=== PATIENT | female | born 1955 | race Caucasian/White ===

== ENCOUNTER 2022-10-12 16:09 | Emergency (ER) | payer MEDICARE, SELFPAY ==
--- NOTE | ~2022-10-12 | XR_ITS ---
EXAMINATION: XR HAND, RIGHT CLINICAL INFORMATION: Injury, pain COMPARISON: None TECHNIQUE: PA, lateral, and oblique views of the right hand. FINDINGS: No acute fracture or dislocation. Joint spaces at the wrist appear maintained. Advanced first CMC joint osteoarthritis with severe joint space narrowing, subchondral sclerosis and osteophytes. Advanced osteoarthritic change at the IP joints characterized by varying degrees of joint space narrowing or subchondral sclerosis and osteophytes, most severe at the thumb IP joint, second and third DIP joints. No erosions or chondrocalcinosis. XR/XR hand RT 2V IMPRESSION: 1. No acute fracture or dislocation. 2. Advanced osteoarthritic change at the IP joints and first CMC joint.
--- NOTE | 2022-10-12 16:11 | ED_ITS ---
HPI - General Adult General Chief complaint: Animal Bite Stated complaint: Dog bite R hand per EMS Time Seen by Provider: 10/12/22 16:10 Source: patient and EMS Mode of arrival: EMS Limitations: no limitations History of Present Illness HPI narrative: Patient is a 67 year old assigned female at with no reported medical history presenting to the emergency department today with a right hand laceration. Patient states that she was bit by her newly adopted dog. Patient states that she is unsure when her last tetanus shot was. Patient states that the dog is up to date on all shots. Patient denies any dizziness, lightheadedness, abdominal pain, nausea, vomiting, fever, chills, blurry vision, double vision, loss of vision, chest pain, difficulty breathing, shortness of breath, back pain, night sweats, pain with urination, increased urinary frequency, increased urinary urgency, blood in her urine or stool, syncope or a near syncopal episode, bowel incontinence, bladder incontinence, bowel retention, bladder retention, or any other complaints at this time. Onset (ago): minute(s) Location: right and upper extremity Radiation: non-radiation Severity: mild Severity scale (1-10): 3 Pain Consistency: constant Relieving factors: none Exacerbating factors: none Associated symptoms: denies other symptoms Treatments prior to arrival: none Related Data Previous Rx's Medication Instructions Recorded amoxicillin 875 mg-potassium 1 tab PO BID 7 days #14 tabs 10/12/22 clavulanate 125 mg tablet Allergies Allergy/AdvReac Type Severity Reaction Status Date / Time No Known Allergies Allergy Verified 10/12/22 16:17 Review of Systems Constitutional: Constitutional: Reports no additional constitutional complaints, Denies chills, Denies fever(s) and Denies night sweats Eyes: Eyes: Reports no additional eye complaints, Denies blurry vision, Denies change in vision, Denies diplopia, Denies eye discharge, Denies loss of vision and Denies eye pain ENT: Denies dizziness Cardiovascular: Cardiovascular: Reports no additional cardiovascular complaints, Denies chest pain, Denies lightheadedness, Denies Loss of Consciousness and Denies dyspnea Respiratory: Respiratory: Reports no additional respiratory complaints and Denies dyspnea Gastrointestinal: Gastrointestinal: Reports no additional gastrointestinal complaints, Denies abdominal pain, Denies melena, Denies hematochezia, Denies change in bowel habits and Denies change in stool character Genitourinary: Genitourinary: Denies hematuria, Denies urinary frequency, Denies dysuria, Denies urinary incontinence, Denies urinary hesitancy and Denies urinary urgency Musculoskeletal: Musculoskeletal: Reports no additional musculoskeletal complaints, Denies numbness and Denies tingling Comments: right hand laceration Neurologic: Denies dizziness, Denies loss of vision, Denies numbness and Denies tingling Psychiatric: Psychiatric: Reports no additional psychiatric complaints Endocrine: Endocrine: Reports no additional endocrine complaints Hematologic/Lymphatic: Hematologic/Lymphatic: Reports no additional hematologic/lymphatic complaints Allergic/Immunologic: Allergic/Immunologic: Reports no additional allergic/immunologic complaints PMFSH Past Medical History Attestation statement: The following information was validated with the patient. Source: old records reviewed and nursing notes reviewed Social History Social History Alcohol intake: current Alcohol intake frequency: holidays/special occasions only Alcohol type: wine Smoked in Last 30 Days: No Use of substances other than those prescribed or required for medical reasons: No Advance Directives: No Advance Directives Information Provided: No Physical Exam ED Vital Signs: Vital Signs - 24 hr 10/12/22 16:18 Temperature 97.8 F Pulse Rate 90 Respiratory Rate 20 Blood Pressure 177/78 H Pulse Oximetry 96 Oxygen Delivery Method Room Air BMI result Body Mass Index 35.5 Const General: cooperative, no acute distress, alert and awake Nutritional Appearance: well nourished Orientation/consciousness: patient oriented x3 Limitations: no limitations [facility] Head: Yes normal to inspection and Yes atraumatic Ears: hearing grossly normal bilaterally and external ears normal General nose exam: Normal external nose present, no nasal discharge noted and no epistaxis Face and sinus: Yes normal facial exam, No abrasion and No laceration Mouth: Normal oral and palatal mucosa present, no drooling and no muffled voice Eyes General: appearance normal, both eyes and all related structures Periorbital: periorbital findings normal Eyelids: Yes eyelids normal Conjunctivae: conjunctivae normal Pupils: Equal, round and reactive pupils present EOM: EOMs intact bilaterally Neck Neck: Yes normal visual inspection, Yes full ROM and Yes no lymphadenopathy Chest Chest palpation & inspection: normal inspection of the chest Resp Effort & Inspection: normal respiratory effort and able to speak in complete sentences Auscultation: clear to auscultation bilaterally Cardio Rate: regular rate Rhythm: regular rhythm GI Inspection: Yes normal to inspection Neuro General: patient oriented x3 and moves all extremities Cranial nerves: Yes Equal, round and reactive pupils present Cognition (Neuro): normal cognition Motor exam (neuro): 5/5 motor strength present throughout Sensory Exam: Normal double simultaneous stimulation for sensation Coordination: [id number] test normal Extrem General: Yes full ROM and Yes capillary refill normal Hand/finger images: 1. 3cm laceration 2. 2cm laceration Psych Appearance: grossly normal Mental Status: mental status grossly normal Affect: normal affect Attitude: cooperative Thought process: Normal thought process present Thought content: Normal thought content present Insight: Good insight present (Psych) Medications Administered Discontinued Medications Generic Name Dose Route Start Last Admin Trade Name Freq PRN Reason Stop Dose Admin Hydrocodone Bitart/Acetaminophen 1 tab 10/12/22 16:36 10/12/22 16:44 Hydrocodone Bit/Acetam 5/325 Tablet PO 10/12/22 16:37 1 tab ONCE ONE Administration Diphtheria/Tetanus/Acell Pertussis 0.5 ml 10/12/22 17:37 10/12/22 17:45 Diphth,Pertus(Acell),Tet Adult 0.5 Ml Syringe IM 10/12/22 17:38 0.5 ml .ONCE ONE Administration Lidocaine HCl 15 ml 10/12/22 16:17 10/12/22 16:28 Lidocaine Hcl 1 % Mpf 5 Ml Vial SUBCUT 10/12/22 16:18 15 ml ONCE ONE Administration Procedures Laceration Laceration 1: Site: hand Side (If applicable): right Size (cm): 5 Description: irregular Depth: simple, single layer Local Anesthetic: lidocaine 1% Amount of anesthesia used (mL): 15 Pre-repair: wound explored, irrigated extensively and deep structures intact Skin layer closed with: other (prolene) Size (cm): 4-0 Number of sutures: 5 Technique: simple, interrupted (approximated loosely) Medical Decision Making Medical Decision Making MDM Narrative: Patient is a 67 year old assigned female at with no reported medical history presenting to the emergency department today with a laceration to the right hand. Patient's physical exam showed a 5cm laceration extending from the dorsal right ring finger into the web space between the ring and middle finger, no active bleeding. Patient's right hand x-ray showed no acute process. Patient's right hand was repaired, per procedure note, without incident. Patient's wound edges were loosely approximated after being thoroughly irrigated / cleaned. Patient's ROM, circulation, strength, and sensation were present before and after the laceration repair. Patient was brought up to date on tetanus. I explained my physical exam findings as well as all test results to the patient and the patient's son. I answered all questions asked by the patient and the patient's son. I stressed the importance of the patient taking her medication as prescribed. I stressed the importance of the patient following up with her primary care provider. I stressed the importance of the patient performing daily wound checks and dressing changes. I stressed the importance of the patient not soaking the sutured area. I stressed the importance of the patient having the sutures removed in 10-14 days and not spreading her fingers in a wide fashion until the sutures were removed. I stressed the importance of the patient returning to the emergency department immediately if her symptoms were to worsen or if she were to develop any dizziness, shortness of breath, difficulty breathing, chest pain, blurry vision, loss of vision, nausea, vomiting, abdominal pain, fever, chills, back pain, or any other complaints. P atient and the patient's son verbalized agreement and understanding with this treatment plan and discharge. Differential Diagnosis Differential Diagnoses: The differential diagnosis associated with the presentation includes dog bite, laceration Radiology Impression Discussion of test interpretation with radiology: I have reviewed the radiologist's reading. Radiologist Impression: My interpretation is in agreement with the radiologist's impression of this imaging study. -------- EXAMINATION: XR HAND, RIGHT CLINICAL INFORMATION: Injury, pain? COMPARISON: None? TECHNIQUE: PA, lateral, and oblique views of the right hand. FINDINGS: No acute fracture or dislocation. Joint spaces at the wrist appear maintained. Advanced first CMC joint osteoarthritis with severe joint space narrowing, subchondral sclerosis and osteophytes. Advanced osteoarthritic change at the IP joints characterized by varying degrees of joint space narrowing or subchondral sclerosis and osteophytes, most severe at the thumb IP joint, second and third DIP joints. No erosions or chondrocalcinosis. XR/XR hand RT 2V IMPRESSION: 1.? No acute fracture or dislocation. 2.? Advanced osteoarthritic change at the IP joints and first CMC joint. ? Dictated By: Mg Dunham Signed By: Electronically signed by Mg Dunham 10/12/22 0573 Discharge Plan Discharge Clinical Impression: Bite by animal, Hand laceration Patient Disposition: Home, Self-Care Instructions: Care For Your Stitches (ED), Laceration Without Closure (ED) Additional Instructions: Have your sutures removed in 10-14 days. Do NOT soak the sutured area. Do NOT stretch the fingers widely. DO perform daily wound checks and dressing changes. DO take your antibiotics for the full course. Follow up with your primary care provider. Return to the emergency department immediately if your symptoms worsen or if you develop any dizziness, shortness of breath, difficulty breathing, chest pain, blurry vision, loss of vision, nausea, vomiting, abdominal pain, fever, chills, back pain, or any other complaints. Prescriptions: New amoxicillin-pot clavulanate 875-125 mg tablet 1 tab PO BID 7 Days Qty: 14 0RF Referrals: [facility] [Provider Group] (Call to establish and follow up with a primary care provider.) [facility] [Provider Group] (Call to establish and follow up with a primary care provider.) [facility] [[facility]] (Call to establish and follow up with a primary care provider.) Print Language: Honduran
[2022-10-12 16:18] VITALS: BP 177/78; BP 220/100; PULSE 83; PULSE 90; RESP 20; TEMP 36.6; O2SAT 100; O2SAT 96; BMI 35.5
[2022-10-12] MEDS: Lidocaine HCl 1 % MPF 5 ML VIAL 15 ML SUBCUT (16:28)
--- NOTE | 2022-10-12 16:34 | PC.NURSE ---
patient a&ox3, c/o 10/10 pain, pt rt hand soaking in providone-iodine and saline, lidocaine obtained for provider to administer to the patient. vss, will continue to monitor
[2022-10-12] MEDS: HYDROcodone Bit/Acetam 5/325 TABLET 1 TAB PO (16:44)
--- NOTE | 2022-10-12 16:45 | PC.NURSE ---
patient medicated for pain, son at bedside
--- NOTE | 2022-10-12 16:53 | PC.NURSE ---
pt medicated for 10/10 pain, rt ring finger needing stitches, left ankle area superficial bites.
[2022-10-12] MEDS: Diphth,Pertus(ACell),Tet Adult 0.5 ML SYRINGE IM (17:45)
[2022-10-12] MEDS: Amoxicillin/Potassium Clav 875 MG TABLET PO (18:17)
== END 2022-10-12 18:28 | disposition home or self-care (01) ==
PROVIDERS: Emergency Provider Emergency Medicine
DX: S61.451A Open bite of right hand, initial encounter (principal); W54.0XXA Bitten by dog, initial encounter; Y93.89 Activity, other specified; Y92.019 Unspecified place in single-family (private) house as the place of occurrence of the external cause; Y99.9 Unspecified external cause status
CPT/HCPCS: 12042; 73120; 90471; 90715; 99284

== ENCOUNTER 2022-12-20 09:26 | Outpatient (REF) | payer MEDICARE, SELFPAY ==
--- NOTE | ~2022-12-20 | XR_ITS ---
EXAMINATION: XR SHOULDER, RIGHT CLINICAL INFORMATION: Pain in right shoulder. COMPARISON: None available. TECHNIQUE: AP external rotation, Grashey, scapular Y, and axillary views of the right shoulder. FINDINGS: There is mild loss of right AC joint space with inferior periarticular spurring. There is mild inferior acromial enthesophyte. The glenohumeral joint space is reduced but no bony erosive changes or spurring seen. No acute fracture or bony abnormality. The soft tissues are normal. XR/XR shoulder RT min 2V IMPRESSION: 1. Mild degenerative changes right AC joint and inferior acromial enthesophyte. 2. No visible acute fracture or dislocation seen.
[2022-12-20 11:17] LABS: MANUAL DIFF FLAG NO
[2022-12-20 11:28] LABS: Basophils Absolute Auto 0.1 X10*3/uL (0.0-0.2); Basophils Percent Auto 0.9 % (0-2); Eosinophils Absolute Auto 0.1 X10*3/uL (0.0-0.4); Hematocrit 46.4 % (37.0-47.0); Hemoglobin 15.3 g/dl (12.0-16.0); Imm Gran Abs Auto 0.04 X10*3/uL (0.00-0.03); Imm Gran Pct Auto 0.5 % (0.0-0.4); Lymphocytes Absolute Auto 1.7 X10*3/uL (1.2-4.9); Lymphocytes Percent Auto 21.3 % (20-40); Mean Corpuscular Hemoglobin 31.4 pg (27.0-33.0); Mean Corpuscular Volume 95.3 fL (80.0-98.0); Mean Platelet Volume 9.1 fL (9.4-12.3); Monocytes Absolute Auto 0.5 X10*3/uL (0.1-1.2); Monocytes Percent Auto 5.5 % (2-11); Neutrophils Absolute Auto 5.8 x10*3/uL (2.0-8.3); Neutrophils Percent Auto 70.8 % (45-73); Platelet Count 208 X10*3/uL (160-400); Red Blood Count 4.87 X10*6/uL (4.20-5.50); Red Cell Distribution Width 12.2 % (11.0-16.0); White Blood Count 8.2 X10*3/uL (4.8-10.8)
[2022-12-20 12:09] LABS: Alanine Aminotransferase 24 U/L (0-31); Albumin Level 4.1 g/dL (3.5-5.0); Alkaline Phosphatase 69 U/L (39-117); Anion Gap 12 (12-20); Aspartate Amino Transferase 20 U/L (5-31); Bilirubin Total 0.6 mg/dL (0.0-1.0); Blood Urea Nitrogen 15 mg/dL (9-16); Calcium 8.8 mg/dL (8.4-10.2); Carbon Dioxide 29 mmol/L (22-29); Chloride 105 mmol/L (96-108); Cholesterol 210 mg/dL; Estimated Glomerular Filt Rate > 60; Glucose Fasting 97 mg/dL (60-99); HDL Cholesterol 47 mg/dL; LDL Cholesterol Calculated 142 mg/dl; Potassium 4.3 mmol/L (3.3-5.1); Sodium 142 mmol/L (135-145); Total Protein 6.6 g/dL (6.5-8.0); Triglycerides 107 mg/dL
[2022-12-20 12:13] LABS: TSH reflex Free T4 1.77 uIU/mL (0.32-4.0); Vitamin B12 302 pg/mL (200-900)
[2022-12-26 15:03] LABS: Vitamin D 25-OH, D2 <4 ng/mL; Vitamin D 25-OH, D3 13 ng/mL; Vitamin D 25-OH, Total 13 ng/mL (30-100)
== END 2022-12-20 09:27 | disposition home or self-care (01) ==
LOC: HO.HMGCX 09:26
PROVIDERS: PCP Internal Medicine; Visit Provider Internal Medicine
DX: M25.511 Pain in right shoulder (principal); G47.9 Sleep disorder, unspecified; R53.83 Other fatigue; R68.89 Other general symptoms and signs; G89.29 Other chronic pain; Z76.89 Persons encountering health services in other specified circumstances; E66.9 Obesity, unspecified; E55.9 Vitamin D deficiency, unspecified
CPT/HCPCS: 36415; 73030; 80053; 80061; 82306; 82607; 84443; 85025

== ENCOUNTER 2023-07-23 13:33 | Outpatient (AMB) | payer MEDICARE, SELFPAY ==
[2023-07-23 13:40] VITALS: BP 136/78; PULSE 68; O2SAT 98; BMI 34.1
--- NOTE | 2023-07-23 13:40 | MHC.PC.OV ---
Vital Signs 07/23/23 13:40 Height 5 ft 6 in Weight 211 lb BMI 34.1 BP 136/78 Blood Pressure Location Rt brachial Position Sitting Pulse 68 Pulse Source Pulse Oximeter Pulse Oximetry (%) 98 Oxygen Delivery Method Room Air Intake Visit Reasons: 3 month follow up Med review Allergies No Known Allergies Allergy (Verified 07/23/23 13:42) Medication List - Last Reconciled 07/23/23 by Zuri Zafar MD cholecalciferol (vitamin D3) 25 mcg PO DAILY 90 days escitalopram oxalate (Lexapro) 5 mg PO DAILY Tobacco use date assessed: 07/23/23 Fall risk assessment: No Falls in past year Last assessed Fall Risk: 07/31/23 Dental Screening Dental Screen Date: 07/23/23 Did you have a dental visit in the last 12 months?: No Did you have a dental problem in the last 6 months where you did not have access to dental care?: No Was dental information given to patient?: Patient has dentist HPI 3 month follow up Med review HPI Details Patient is 67-year-old female came in today for follow-up appointment Patient has lost her recently she is going through grieving process Last time she was seen in January of this year I prescribed Lexapro 5 mg she felt so much better taking the medication until she ran out. She missed her follow-up appointment in April. I have sent a refill for the medication She does not want see a therapist She is taking vitamin-D supplement as well, continue that. BMI is elevated at 34.1 patient has difficulty losing weight. She will return in 4 months for follow-up [facility] Social History Housing: House Alcohol intake: current Alcohol intake frequency: holidays/special occasions only Alcohol type: wine Patient Tobacco Use Status: Never used Tobacco e-Cigarette/Vaping Use: Never Used Second Hand Smoke Exposure: No service: No Current occupational status: retired Cognitive needs: No Hearing needs: No Vision needs: Yes Questionnaire PHQ-9 Over the last 2 weeks, how often have you been bothered by any of the following problems? 1. Little interest or pleasure in doing things: several days 2. Feeling down, depressed, or hopeless: not at all 3. Trouble falling or staying asleep, or sleeping too much: more than half the days 4. Feeling tired or having little energy: more than half the days 5. Poor appetite or overeating: several days 6. Feeling bad about yourself - or that you are a failure or have let yourself or your family down: not at all 7. Trouble concentrating on things, such as reading the newspaper or watching television: not at all 8. Moving or speaking so slowly that other people could have noticed. Or the opposite - being so fidgety or restless that you have been moving around a lot more than usual: not at all 9. Thoughts that you would be better off or of hurting yourself in some way: not at all Total score: 6 Depression Screening Interpretation: Negative Depression Screening Done: Yes 22028 - PHQ-9 Billing: Yes Source: Developed by Drs. Srinivas Camargo, Aniya Hansen, Darío Magana and colleagues, with an educational surjit from [employer]. Thrive Questionnaire Date Thrive assessed: 01/31/23 AUDIT C Alcohol Use Questionnaire (AUDIT-C) 1. How often do you have a drink containing alcohol?: Never 3. How often do you have six or more drinks on one occasion?: Never Total Score: 0 Score Reviewed/Action Taken: Yes SANDRA-7 AMB Questionnaire SANDRA-7 Date SANDRA - 7 assessed: 01/31/23 Source: Developed by Drs. Srinivas Camargo, Aniya Hansen, Darío Magana and colleagues, with an educational surjit from [employer]. Review of Systems Const Denies chills and Denies fever(s) ENT Denies epistaxis and Denies nasal discharge Card Denies chest pain Resp Denies chest congestion, Denies cough and Denies hemoptysis GI Denies diarrhea and Denies nausea Skin/Breast Denies rash Neuro Reports no additional complaints Psych Reports no additional complaints Endo Reports no additional complaints Physical exam (Primary Care) Vital Signs: Last Vital Signs Pulse 68 07/23/23 13:40 BP 136/78 07/23/23 13:40 Pulse Ox 98 07/23/23 13:40 Oxygen Delivery Method Room Air 07/23/23 13:40 BMI result Body Mass Index 34.1 Tobacco/Smoking Status: Tobacco use Status Tobacco use date assessed 07/23/23 07/23/23 13:42 Patient Tobacco Use Status Never used Tobacco 07/23/23 13:41 e-Cigarette/Vaping Use Never Used 07/23/23 13:41 PHQ-9: PHQ-9 Score PHQ-9: Total score 6 07/23/23 14:01 Depression Screening Interpretation: Negative Thrive Assessment: Date of Thrive Assessment Date Thrive assessed 01/31/23 07/23/23 13:41 Const General: cooperative, comfortable and no acute distress Orientation/consciousness: patient oriented x3 HENMT Head: Yes normocephalic Eyes General: appearance normal, both eyes and all related structures Neck Neck: Yes supple Resp Effort & Inspection: normal respiratory effort, no cough and no stridor Cardio Rhythm: regular rhythm Heart sounds: S1 normal heart sound present and S2 normal heart sound present Skin General skin exam: turgor normal Neuro General: patient oriented x3, tone normal and moves all extremities Extrem Right lower extremity: no edema Left lower extremity: no edema Assessment and Plan Assessment & Plan (1) Mood disorder: Code(s): F39 - Unspecified mood [affective] disorder (2) Obesity due to excess calories: Code(s): E66.09 - Other obesity due to excess calories Qualifiers: Body mass index: BMI 34.0-34.9 Obesity classification: adult class 1 (BMI 30 - 34.9) Serious obesity comorbidity presence: without serious comorbidity Qualified Code(s): E66.09 - Other obesity due to excess calories; Z68.34 - Body mass index [BMI] 34.0-34.9, adult (3) Bereavement reaction: Code(s): F43.20 - Adjustment disorder, unspecified; Z63.4 - Disappearance and of family member (4) Vitamin D deficiency: Code(s): E55.9 - Vitamin D deficiency, unspecified Plan Patient is 67-year-old female came in today for follow-up appointment Patient has lost her recently she is going through grieving process Last time she was seen in January of this year I prescribed Lexapro 5 mg she felt so much better taking the medication until she ran out. She missed her follow-up appointment in April. I have sent a refill for the medication She does not want see a therapist She is taking vitamin-D supplement as well, continue that. BMI is elevated at 34.1 patient has difficulty losing weight. She will return in 4 months for follow-up Medications: Refilled escitalopram oxalate (Lexapro) 5 mg PO DAILY 90 tabs 1RF Mood stabilizer Coding Level of Care Code Est Pt Level 3 (50799) Diagnoses Mood disorder F39 Class 1 obesity due to excess calories without serious comorbidity with body mass index (BMI) of 34.0 to 34.9 in adult E66.09; Z68.34 Body mass index: BMI 34.0-34.9 Obesity classification: adult class 1 (BMI 30 - 34.9) Serious obesity comorbidity presence: without serious comorbidity Bereavement reaction F43.20; Z63.4 Vitamin D deficiency E55.9
== END 2023-07-23 15:39 | disposition home or self-care (01) ==
PROVIDERS: PCP Internal Medicine; Visit Provider Internal Medicine
DX: F39 Unspecified mood [affective] disorder (principal); E66.09 Other obesity due to excess calories; Z68.34 Body mass index [BMI] 34.0-34.9, adult; F43.20 Adjustment disorder, unspecified; Z63.4 Disappearance and death of family member; E55.9 Vitamin D deficiency, unspecified
CPT/HCPCS: 99213

== ENCOUNTER 2023-11-25 10:00 | Outpatient (AMB) | payer MEDICARE, SELFPAY ==
[2023-11-25 10:11] VITALS: BP 148/78; PULSE 75; O2SAT 95; BMI 35.0
--- NOTE | 2023-11-25 10:11 | AM.OFFVISMDC ---
Intake Vital Signs 11/25/23 10:11 Height 5 ft 6 in Weight 217 lb 2 oz BMI 35.0 BP 148/78 H Pulse 75 Pulse Source Pulse Oximeter Pulse Oximetry (%) 95 Oxygen Delivery Method Room Air Intake Visit Reasons: GERMAN [id number] Allergies No Known Allergies Allergy (Verified 11/25/23 10:12) Medication List - Last Reconciled 11/25/23 by Zuri Zafar MD cholecalciferol (vitamin D3) 25 mcg PO DAILY 90 days Do you need a note to return to daycare/school/sports/work: No HPI SWV G0439 HPI Details start lexapro again , patient stopped when she felt better how ever having difficulty sleeping at night, tells me that her mind wont stop thinking I feel that she should go back on Lexapro, she agrees 5 mg sent we will book TV visit in 3 wks to see if she is able to sleep now last time she had labs was January of last year she is on Vit D supplement repeat labs again in January , order placed Bp is slightly elevated today, I would rec to reduce salt intake and try to lose some wt her Balance is off since she got the Menengitis years ago also have H/o Lupus diagnosed at age 26 and had mylitits due to that, in remission since years HPI Comments History of Present Illness Details AWV Medical/social history reviewed Past medical history reviewed [facility] [place] of care / care team list updated Surgical/ hospitalization history reviewed Current medications including OTC and supplements reviewed Family history reviewed Tobacco controlled form updated Alcohol use form updated Illicit drug use in social history reviewed Current diagnosis of depression ?screening updated Appropriate PHQ 2/PHQ-9 completed . Vital signs reviewed Alcohol tobacco drug use reviewed and discussed . MMSE completed . ? Fall risk: ?Assessed Fall history: ?None Have you had any falls with injury in the past year?? No Have you had 2 or more falls in the past year?? No Fall risk assessment completed Home safety discussed with the patient Functional ability assessed and discussed and documented Activities of daily living reviewed and appropriate actions taken . HRA filled out by the patient and reviewed by provider and scanned . Appropriate written screening schedule established . Any health advise needed provided . Advance care planning discussed with the patient , necessary paperwork filled Examination IPPE/AWE: Balance FAILED Romberg FAILED Tandem walk FAILED walk-in turn FAILED rise from sit to stand intact . ?Hearing ?whisper test pass . Medication list reviewed, patient is stable on medications All other providers patient is seeing discussed and noted . [facility] Social History Housing: House Alcohol intake: current Alcohol intake frequency: holidays/special occasions only Alcohol type: wine Patient Tobacco Use Status: Never used Tobacco e-Cigarette/Vaping Use: Never Used Second Hand Smoke Exposure: No service: No Current occupational status: retired Cognitive needs: No Hearing needs: No Vision needs: Yes Questionnaire Medicare Wellness Checkup [age] What gender do you identify with?: female During the past 4 weeks, how much have you been bothered by emotional problems such as feeling anxious, depressed, irritable, sad or downhearted, and blue?: moderately During the past 4 weeks, has your physical & emotional health limited your social activities with family, friends, neighbors, or groups?: slightly During the past 4 weeks, how much bodily pain have you generally had?: very mild pain During the past 4 weeks, was someone available to help you if you needed & wanted help?: yes, as much as I wanted During the past 4 weeks, what was the hardest physical activity you could do for at least 2 minutes?: moderate Can you get to places out of walking distance without help? (For eg., can you travel alone on buses, taxis or drive your car?): Yes Can you go shopping for groceries or clothes without someone's help?: Yes Can you prepare your own meals?: Yes Can you do your housework without help?: Yes Because of any health problems, do you need the help of another person with your personal care needs such as eating, bathing, dressing or getting around the house?: No Can you handle your own money without help?: Yes During the past 4 weeks, how would you rate your health in general?: good During the past 4 weeks how have things been going for you?: pretty well Are you having difficulties driving your car?: no Do you always fasten your seat belt when you are in a car?: yes, usually During past 4 weeks, have you been bothered by the following: never: Falling or dizzy when standing up, Sexual problems?, Trouble eating well?, Teeth or denture problems? and Problems using the telephone? and often: Tiredness or fatigue? Have you fallen 2 or more times in the past year?: No Are you afraid of falling?: Yes Are you a smoker?: no During the past 4 weeks, how many drinks of wine, beer, or other alcoholic beverages did you have?: 2-5 drinks per week Do you exercise for about 20 minutes 3 or more times a week?: no, I usually do not exercise this much Have you been given information to help with the following?: no: Hazards in your house that might hurt you? and no: Keeping track of your medications? How often do you have trouble taking medicines the way you have been told to take them?: I always take medicine as prescribed How confident are you that you can control & manage most of your health problems?: very confident What is your race?: White Mini Mental State Exam (MMSE) Orientation What is the (year) (season) (date) (day) (month)?: year, season, date, day and month Where are we (state) (county) (town or city) (hospital) (floor)?: state, county, town or city, hospital/clinic and floor Score Score: 10 Activity of Daily Living Bathing - sponge bath, tub bath or shower: receives no assistance (gets in/out by self, if usual bathing means Dressing - getting clothes from closets & drawers, including inner/outer garments & fasteners.: gets clothes & gets completely dressed without help Toileting - going to the 'toilet room' for urine/bowel elimination & cleaning self/arranging clothes: goes to toilet room, cleans self, arranges clothes without help Transfer: moves in & out of bed and chair without help (may use support object) Continence: has occasional 'accidents' Feeding: feeds self without help Total Score: 0 Information obtained from: patient Using telephone: independent Traveling: independent Shopping: independent Preparing meals: independent Housework: independent Taking medicine: independent Managing money: independent PHQ-9 Over the last 2 weeks, how often have you been bothered by any of the following problems? 1. Little interest or pleasure in doing things: more than half the days 2. Feeling down, depressed, or hopeless: more than half the days 3. Trouble falling or staying asleep, or sleeping too much: nearly every day 4. Feeling tired or having little energy: nearly every day 5. Poor appetite or overeating: not at all 6. Feeling bad about yourself - or that you are a failure or have let yourself or your family down: not at all 7. Trouble concentrating on things, such as reading the newspaper or watching television: not at all 8. Moving or speaking so slowly that other people could have noticed. Or the opposite - being so fidgety or restless that you have been moving around a lot more than usual: not at all 9. Thoughts that you would be better off or of hurting yourself in some way: not at all Total score: 10 Depression Screening Interpretation: Positive Depression Screening Follow-up: Existing condition and In treatment Depression Screening Done: Yes 87811 - PHQ-9 Billing: Yes Source: Developed by Drs. Srinivas Camargo, Aniya Hansen, Darío Magana and colleagues, with an educational surjit from [employer]. Review of Systems Const Denies chills and Denies fever(s) ENT Denies epistaxis and Denies nasal discharge Card Denies chest pain Resp Denies chest congestion, Denies cough and Denies hemoptysis GI Denies diarrhea and Denies nausea Skin/Breast Denies rash Neuro Reports no additional complaints Psych Reports no additional complaints Endo Reports no additional complaints Physical Exam Vital Signs: Last Vital Signs Pulse 75 11/25/23 10:11 BP 148/78 H 11/25/23 10:11 Pulse Ox 95 11/25/23 10:11 Oxygen Delivery Method Room Air 11/25/23 10:11 BMI result Body Mass Index 35.0 Const General: cooperative, comfortable and no acute distress Orientation/consciousness: patient oriented x3 HEENT Head: Yes normocephalic Eyes General: appearance normal, both eyes and all related structures Neck Other: Supple Neck: Yes supple Resp Effort & Inspection: normal respiratory effort, no cough and no stridor Cardio Rhythm: regular rhythm Heart sounds: S1 normal heart sound present and S2 normal heart sound present Skin General skin exam: turgor normal Neuro Other: Motor sensory intact General: patient oriented x3, tone normal and moves all extremities Extrem Other: No lower extremity swelling. Right lower extremity: no edema Left lower extremity: no edema Psych Other: Normal effect, speech clear Assessment & Plan Assessment & Plan (1) Medicare annual wellness visit, subsequent: Code(s): Z00.00 - Encounter for general adult medical examination without abnormal findings (2) Difficulty sleeping: Code(s): G47.9 - Sleep disorder, unspecified (3) Depression, major, recurrent, mild: Code(s): F33.0 - Major depressive disorder, recurrent, mild (4) Obesity due to excess calories: Code(s): E66.09 - Other obesity due to excess calories Qualifiers: Body mass index: BMI 34.0-34.9 Obesity classification: adult class 1 (BMI 30 - 34.9) Serious obesity comorbidity presence: without serious comorbidity Qualified Code(s): E66.09 - Other obesity due to excess calories; Z68.34 - Body mass index [BMI] 34.0-34.9, adult (5) Anxiety, generalized: Code(s): F41.1 - Generalized anxiety disorder (6) Elevated blood pressure reading: Code(s): R03.0 - Elevated blood-pressure reading, without diagnosis of hypertension (7) H/O bilateral mastectomy: Code(s): Z90.13 - Acquired absence of bilateral breasts and nipples (8) History of breast cancer: Code(s): Z85.3 - Personal history of malignant neoplasm of breast (9) Balance disorder: Code(s): R26.89 - Other abnormalities of gait and mobility (10) History of myelitis: Code(s): Z86.61 - Personal history of infections of the central nervous system (11) History of systemic lupus erythematosus: Code(s): M32.9 - Systemic lupus erythematosus, unspecified (12) Vitamin D deficiency: Code(s): E55.9 - Vitamin D deficiency, unspecified Plan start lexapro again , patient stopped when she felt better how ever having difficulty sleeping at night, tells me that her mind wont stop thinking I feel that she should go back on Lexapro, she agrees 5 mg sent we will book TV visit in 3 wks to see if she is able to sleep now last time she had labs was January of last year she is on Vit D supplement repeat labs again in January , order placed Bp is slightly elevated today, I would rec to reduce salt intake and try to lose some wt her Balance is off since she got the Menengitis years ago also have H/o Lupus diagnosed at age 26 and had mylitits due to that, in remission since years Orders: Orders Complete Blood Count Auto Diff Today E55.9 - Vitamin D deficiency, unspecified, F41.1 - Generalized anxiety disorder, R03.0 - Elevated blood-pressure reading, without diagnosis of hypertension Comprehensive [place]. Panel Fast Today E55.9 - Vitamin D deficiency, unspecified, F41.1 - Generalized anxiety disorder, R03.0 - Elevated blood-pressure reading, without diagnosis of hypertension Vitamin D 25-OH (D2 and D3) Today E55.9 - Vitamin D deficiency, unspecified, F41.1 - Generalized anxiety disorder, R03.0 - Elevated blood-pressure reading, without diagnosis of hypertension TSH reflex Free T4 Today E55.9 - Vitamin D deficiency, unspecified, F41.1 - Generalized anxiety disorder, R03.0 - Elevated blood-pressure reading, without diagnosis of hypertension Medications: Refilled escitalopram oxalate (Lexapro) 5 mg PO DAILY 90 tabs 1RF Mood stabilizer cholecalciferol (vitamin D3) 25 mcg PO DAILY 90 caps 3RF 90 days Quality Reporting (2019) Depression/Bipolar (159/160/161/177) PHQ-9: Total score: 10 Coding Level of Care Code Medicare Subsequent (G0439) Est Pt Level 4 (86681) Diagnoses Medicare annual wellness visit, subsequent Z00.00 Difficulty sleeping G47.9 Depression, major, recurrent, mild F33.0 Class 1 obesity due to excess calories without serious comorbidity with body mass index (BMI) of 34.0 to 34.9 in adult E66.09; Z68.34 Body mass index: BMI 34.0-34.9 Obesity classification: adult class 1 (BMI 30 - 34.9) Serious obesity comorbidity presence: without serious comorbidity Anxiety, generalized F41.1 Elevated blood pressure reading R03.0 H/O bilateral mastectomy Z90.13 History of breast cancer Z85.3 Balance disorder R26.89 History of myelitis Z86.61 History of systemic lupus erythematosus M32.9 Vitamin D deficiency E55.9 CPT Codes Advance Care Planning - Time spent: 1-15 minutes, not on file ([id number]) Advance Care Planning Advance Care Planning discussion: Completed/Scanned Forms completed: MOLST Time spent: 1-15 minutes, not on file
== END 2023-11-25 10:39 | disposition home or self-care (01) ==
PROVIDERS: PCP Internal Medicine; Visit Provider Internal Medicine
DX: Z00.00 Encounter for general adult medical examination without abnormal findings (principal); G47.9 Sleep disorder, unspecified; F33.0 Major depressive disorder, recurrent, mild; M32.9 Systemic lupus erythematosus, unspecified; Z68.34 Body mass index [BMI] 34.0-34.9, adult; E66.09 Other obesity due to excess calories; F41.1 Generalized anxiety disorder; R03.0 Elevated blood-pressure reading, without diagnosis of hypertension; Z90.13 Acquired absence of bilateral breasts and nipples; Z85.3 Personal history of malignant neoplasm of breast; R26.89 Other abnormalities of gait and mobility; Z86.61 Personal history of infections of the central nervous system
CPT/HCPCS: 1124F; 99214; G0439

== ENCOUNTER 2023-12-18 08:42 | Outpatient (AMB) | payer MEDICARE, SELFPAY ==
--- NOTE | 2023-12-18 09:58 | MHC.PC.OV ---
Intake Visit Reasons: 3 week follow up Allergies No Known Allergies Allergy (Verified 11/25/23 10:12) Medication List - Last Reconciled 12/18/23 by Zuri Zafar MD cholecalciferol (vitamin D3) 25 mcg PO DAILY 90 days escitalopram oxalate (Lexapro) 5 mg PO DAILY Tobacco use date assessed: 07/23/23 HPI 3 week follow up HPI Details Patient is 68-year-old female this is a telemedicine visit Patient was started on Lexapro when she verbalized to feeling anxious and having difficulty sleeping at night because her mind keeps racing She is feeling better but still having problem sleeping at night. She is tolerating Lexapro 5 mg, I am increasing the dose to 10 mg. I have also added zolpidem 5 mg to be taken at night, side effect of medication were reviewed with the patient including risk of fall and habit-forming I have sent 15 tablets patient was instructed to take it only if needed at night. We will follow-up in 2 weeks on that. [facility] Social History Housing: House Alcohol intake: current Alcohol intake frequency: holidays/special occasions only Alcohol type: wine Patient Tobacco Use Status: Never used Tobacco e-Cigarette/Vaping Use: Never Used Second Hand Smoke Exposure: No service: No Current occupational status: retired Cognitive needs: No Hearing needs: No Vision needs: Yes Questionnaire Thrive Questionnaire Date Thrive assessed: 01/31/23 SANRDA-7 AMB Questionnaire SANDRA-7 Date SANDRA - 7 assessed: 01/31/23 Source: Developed by Drs. Srinivas Camargo, Aniya Hansen, Darío Magana and colleagues, with an educational surjit from [employer]. Review of Systems Const Denies chills and Denies fever(s) ENT Denies epistaxis and Denies nasal discharge Card Denies chest pain Resp Denies chest congestion, Denies cough and Denies hemoptysis GI Denies diarrhea and Denies nausea Skin/Breast Denies rash Neuro Reports no additional complaints Psych Reports no additional complaints Endo Reports no additional complaints Physical exam (Primary Care) Tobacco/Smoking Status: Tobacco use Status Tobacco use date assessed 07/23/23 07/23/23 13:42 Patient Tobacco Use Status Never used Tobacco 07/23/23 13:41 e-Cigarette/Vaping Use Never Used 07/23/23 13:41 Thrive Assessment: Date of Thrive Assessment Date Thrive assessed 01/31/23 07/23/23 13:41 Telehealth Telehealth Location of provider rendering services: practice address Location of patient: address on file Patient Identification confirmed using: Name, : Yes Telehealth method: voice only Patient verbally consented to treatment: Yes Patient verbally consented to billing insurance company: Yes Patient informed of any privacy concerns related to visit: Yes Minutes spent on Phone/Video with Pt.: 14 Assessment and Plan Assessment & Plan (1) Anxiety, generalized: Code(s): F41.1 - Generalized anxiety disorder (2) Difficulty sleeping: Code(s): G47.9 - Sleep disorder, unspecified Plan Patient is 68-year-old female this is a telemedicine visit Patient was started on Lexapro when she verbalized to feeling anxious and having difficulty sleeping at night because her mind keeps racing She is feeling better but still having problem sleeping at night. She is tolerating Lexapro 5 mg, I am increasing the dose to 10 mg. I have also added zolpidem 5 mg to be taken at night, side effect of medication were reviewed with the patient including risk of fall and habit-forming I have sent 15 tablets patient was instructed to take it only if needed at night. We will follow-up in 2 weeks on that. Medications: New zolpidem 5 mg PO BEDTIME PRN 15 tabs 0RF sleep Changed From escitalopram oxalate (Lexapro) 5 mg PO DAILY 90 tabs 1RF Mood stabilizer To escitalopram oxalate 10 mg PO DAILY 90 tabs 0RF Mood stabilizer Coding Level of Care Code Tele Est Pt Level 3 (87952) Diagnoses Anxiety, generalized F41.1 Difficulty sleeping G47.9
== END 2023-12-18 11:21 | disposition home or self-care (01) ==
LOC: HO.HMGC 08:42
PROVIDERS: PCP Internal Medicine; Visit Provider Internal Medicine
DX: G47.9 Sleep disorder, unspecified (principal); F41.1 Generalized anxiety disorder
CPT/HCPCS: 99442

== ENCOUNTER 2024-01-01 08:36 | Outpatient (AMB) | payer MEDICARE, SELFPAY ==
--- NOTE | 2024-01-01 10:34 | MHC.PC.OV ---
Intake Visit Reasons: follow up Allergies No Known Allergies Allergy (Verified 11/25/23 10:12) Medication List - Last Reconciled 01/01/24 by Zuri Zafar MD cholecalciferol (vitamin D3) 25 mcg PO DAILY 90 days escitalopram oxalate 10 mg PO DAILY zolpidem 5 mg PO BEDTIME PRN Tobacco use date assessed: 07/23/23 Dental Screening Dental Screen Date: 07/23/23 HPI follow up HPI Details Patient is 68-year-old female this is a telemedicine conference to follow-up on her anxiety Last visit I increased her ecitalopram to 10 mg An added zolpidem 5 mg to be taken as needed at night Patient was having difficulty sleeping due to racing mind at night She is doing much better, she is tolerating medications She says that she only took zolpidem 3 times since it was given because she was going through very rough time at home. Patient is aware of side effect She will return for her follow-up appointment early March. [facility] Social History Housing: House Alcohol intake: current Alcohol intake frequency: holidays/special occasions only Alcohol type: wine Patient Tobacco Use Status: Never used Tobacco e-Cigarette/Vaping Use: Never Used Second Hand Smoke Exposure: No service: No Current occupational status: retired Cognitive needs: No Hearing needs: No Vision needs: Yes Questionnaire Thrive Questionnaire Date Thrive assessed: 01/31/23 SANDRA-7 AMB Questionnaire SANDRA-7 Date SANDRA - 7 assessed: 01/31/23 Source: Developed by Drs. Srinivas Camargo, Aniya Hansen, Darío Magana and colleagues, with an educational surjit from [email or web address]. Review of Systems Const Denies chills and Denies fever(s) ENT Denies epistaxis and Denies nasal discharge Card Denies chest pain Resp Denies chest congestion, Denies cough and Denies hemoptysis GI Denies diarrhea and Denies nausea Skin/Breast Denies rash Neuro Reports no additional complaints Psych Reports no additional complaints Endo Reports no additional complaints Physical exam (Primary Care) Tobacco/Smoking Status: Tobacco use Status Tobacco use date assessed 07/23/23 12/18/23 10:00 Patient Tobacco Use Status Never used Tobacco 12/18/23 10:00 e-Cigarette/Vaping Use Never Used 12/18/23 10:00 Thrive Assessment: Date of Thrive Assessment Date Thrive assessed 01/31/23 12/18/23 10:00 Telehealth Telehealth Location of provider rendering services: practice address Location of patient: address on file Patient Identification confirmed using: Name, : Yes Telehealth method: voice only Patient verbally consented to treatment: Yes Patient verbally consented to billing insurance company: Yes Patient informed of any privacy concerns related to visit: Yes Minutes spent on Phone/Video with Pt.: 13 Assessment and Plan Assessment & Plan (1) Anxiety, generalized: Code(s): F41.1 - Generalized anxiety disorder (2) Difficulty sleeping: Code(s): G47.9 - Sleep disorder, unspecified Plan Patient is 68-year-old female this is a telemedicine conference to follow-up on her anxiety Last visit I increased her ecitalopram to 10 mg An added zolpidem 5 mg to be taken as needed at night Patient was having difficulty sleeping due to racing mind at night She is doing much better, she is tolerating medications She says that she only took zolpidem 3 times since it was given because she was going through very rough time at home. Patient is aware of side effect She will return for her follow-up appointment early March. Coding Level of Care Code Tele Est Pt Level 3 (49393) Diagnoses Anxiety, generalized F41.1 Difficulty sleeping G47.9
== END 2024-01-01 16:30 | disposition home or self-care (01) ==
LOC: HO.HMGC 08:36
PROVIDERS: PCP Internal Medicine; Visit Provider Internal Medicine
DX: F41.1 Generalized anxiety disorder (principal); G47.9 Sleep disorder, unspecified
CPT/HCPCS: 99442

== ENCOUNTER 2024-07-14 12:06 | Outpatient (AMB) | payer MEDICARE, SELFPAY ==
[2024-07-14 12:12] VITALS: BP 144/72; PULSE 77; O2SAT 95; BMI 35.5
--- NOTE | 2024-07-14 12:12 | MHC.PC.OV ---
Vital Signs 07/14/24 12:12 Height 5 ft 6 in Weight 220 lb 4 oz BMI 35.5 BP 144/72 H Blood Pressure Location Rt brachial Position Sitting Pulse 77 Pulse Source Pulse Oximeter Pulse Oximetry (%) 95 Oxygen Delivery Method Room Air Intake Visit Reasons: swollen R knee Allergies No Known Allergies Allergy (Verified 07/14/24 12:15) Medication List - Last Reconciled 07/14/24 by Zuri Zafar MD cholecalciferol (vitamin D3) 25 mcg PO DAILY 90 days Tobacco use date assessed: 07/14/24 Fall risk assessment: No Falls in past year Last assessed Fall Risk: 07/14/24 Dental Screening Dental Screen Date: 07/14/24 Did you have a dental visit in the last 12 months?: Yes Did you have a dental problem in the last 6 months where you did not have access to dental care?: No Was dental information given to patient?: Patient has dentist HPI swollen R knee HPI Details Patient is 68-year-old female came in today to be evaluated for pain in her right knee Patient says that for the past 10 days knee has been swollen and it is painful to walk on On examination her right knee is swollen compared to left There is no pain with palpation, with full flexion patient is having pain She is using cane to walk I have ordered x-ray of the knee I have also sent diclofenac 75 mg to be taken with food 2 times a day for 10 days Currently patient is taking Tylenol which helps a little I also see that her blood pressure is elevated mildly It was elevated before as well Patient will return in 10 days for follow-up [facility] Social History Housing: House Alcohol intake: current Alcohol intake frequency: holidays/special occasions only Alcohol type: wine Patient Tobacco Use Status: Never used Tobacco e-Cigarette/Vaping Use: Never Used Second Hand Smoke Exposure: No service: No Current occupational status: retired Cognitive needs: No Hearing needs: No Vision needs: Yes Questionnaire PHQ-9 Over the last 2 weeks, how often have you been bothered by any of the following problems? 1. Little interest or pleasure in doing things: several days 2. Feeling down, depressed, or hopeless: several days 3. Trouble falling or staying asleep, or sleeping too much: several days 4. Feeling tired or having little energy: several days 5. Poor appetite or overeating: not at all 6. Feeling bad about yourself - or that you are a failure or have let yourself or your family down: not at all 7. Trouble concentrating on things, such as reading the newspaper or watching television: not at all 8. Moving or speaking so slowly that other people could have noticed. Or the opposite - being so fidgety or restless that you have been moving around a lot more than usual: not at all 9. Thoughts that you would be better off or of hurting yourself in some way: not at all Total score: 4 Depression Screening Interpretation: Negative Depression Screening Done: Yes 87648 - PHQ-9 Billing: Yes Source: Developed by Drs. Srinivas Camargo, Aniya Hansen, Darío Magana and colleagues, with an educational surjit from [employer]. Thrive Questionnaire Date Thrive assessed: 07/14/24 I am a: Patient What is your living situation today?: I have a steady place to live Within the past 12 months, did the food you bought not last and you didn't have the money to get more?: Never true Within the past 12 months, did you worry whether your food would run out before you got money to buy more?: Never true Do you have trouble paying for medicines?: No Do you have trouble getting transportation to medical appointments?: No Do you have trouble paying your heating and electricity bill?: No Do you have trouble taking care of your child, family member or friend?: No Do you have trouble with day-to-day activities such as bathing, preparing meals, shopping, managing finances, etc.?: I choose not to answer this question Are you currently unemployed and looking for a job?: No Are you interested in more education?: No Please select the resources that you would like help with: None Currently or been in a relationship where the following occur: I choose not to answer THRIVE Score: 0 AUDIT C Alcohol Use Questionnaire (AUDIT-C) 1. How often do you have a drink containing alcohol?: 4 or more times a week 2. How many drinks containing alcohol do you have on a typical day when you are drinking?: 1 or 2 3. How often do you have six or more drinks on one occasion?: Never Total Score: 4 Score Reviewed/Action Taken: Yes SANDRA-7 AMB Questionnaire SANDRA-7 Date SANDRA - 7 assessed: 07/14/24 Feeling nervous, anxious, or on edge: 2 = More than half the days Not being able to stop or control worryin = More than half the days Worrying too much about different things: 1 = Several days Trouble relaxin = Several days Being so restless that it is hard to sit still: 0 = Not at all Becoming easily annoyed or irritable: 0 = Not at all Feeling afraid as if something awful might happen: 0 = Not at all Total SANDRA-7 score (0-4 normal; 5-9 mild; 10-14 moderate; 15-21 severe): 6 Source: Developed by Drs. Srinivas Camargo, Aniya Hansen, Darío Magana and colleagues, with an educational surjit from [employer]. SANDRA-7 Assessment Billing SANDRA-7 Assessment Tool: SANDRA-7 Assessment 78068 Review of Systems Const Denies chills and Denies fever(s) ENT Denies epistaxis and Denies nasal discharge Card Denies chest pain Resp Denies chest congestion, Denies cough and Denies hemoptysis GI Denies diarrhea and Denies nausea Skin/Breast Denies rash Neuro Reports no additional complaints Psych Reports no additional complaints Endo Reports no additional complaints Physical exam (Primary Care) Vital Signs: Last Vital Signs Pulse 77 07/14/24 12:12 BP 144/72 H 07/14/24 12:12 Pulse Ox 95 07/14/24 12:12 Oxygen Delivery Method Room Air 07/14/24 12:12 BMI result Body Mass Index 35.5 Tobacco/Smoking Status: Tobacco use Status Tobacco use date assessed 07/14/24 07/14/24 12:15 Patient Tobacco Use Status Never used Tobacco 07/14/24 12:15 e-Cigarette/Vaping Use Never Used 07/14/24 12:15 PHQ-9: PHQ-9 Score PHQ-9: Total score 4 07/14/24 12:15 Depression Screening Interpretation: Negative Thrive Assessment: Date of Thrive Assessment Date Thrive assessed 07/14/24 07/14/24 12:15 Currently or been in a relationship where the following occur: I choose not to answer Const General: cooperative, comfortable and no acute distress Orientation/consciousness: patient oriented x3 [facility] Head: Yes normocephalic Eyes General: appearance normal, both eyes and all related structures Neck Neck: Yes supple Resp Effort & Inspection: normal respiratory effort, no cough and no stridor Skin General skin exam: turgor normal Neuro General: patient oriented x3, tone normal and moves all extremities Extrem Elbow/forearm/wrist images: 1. Swollen compared to left,, discomfort with full flexion, no pain with palpation, no pain with calf palpation or maneuvering of the ankle, vascular intact Coding Level of Care Code Est Pt Level 3 (39697) Diagnoses Swelling of knee joint, right M25.461 Acute pain of right knee M25.561 Chronicity: acute Instability of right knee joint M25.361 Elevated blood pressure reading R03.0 Additional Codes SANDRA-7 Assessment Billing - SANDRA-7 Assessment Tool: SANDRA-7 Assessment 76771 ([id number]) Assessment & Plan Assessment & Plan (1) Swelling of knee joint, right: Code(s): M25.461 - Effusion, right knee Category: Medical (2) Pain in right knee: Code(s): M25.561 - Pain in right knee Category: Medical Qualifiers: Chronicity: acute Qualified Code(s): M25.561 - Pain in right knee (3) Instability of right knee joint: Code(s): M25.361 - Other instability, right knee Category: Medical (4) Elevated blood pressure reading: Code(s): R03.0 - Elevated blood-pressure reading, without diagnosis of hypertension Category: Medical Plan Patient is 68-year-old female came in today to be evaluated for pain in her right knee Patient says that for the past 10 days knee has been swollen and it is painful to walk on On examination her right knee is swollen compared to left There is no pain with palpation, with full flexion patient is having pain She is using cane to walk I have ordered x-ray of the knee I have also sent diclofenac 75 mg to be taken with food 2 times a day for 10 days Currently patient is taking Tylenol which helps a little I also see that her blood pressure is elevated mildly It was elevated before as well Patient will return in 10 days for follow-up Orders: Orders XR knee RT 2V Today M25.461 - Effusion, right knee Medications: New diclofenac sodium Take it with food 75 mg PO BID 10 days 20 tabs 0RF pain
== END 2024-07-14 12:29 | disposition home or self-care (01) ==
PROVIDERS: PCP Internal Medicine; Visit Provider Internal Medicine
DX: M25.461 Effusion, right knee (principal); M25.561 Pain in right knee; M25.361 Other instability, right knee; R03.0 Elevated blood-pressure reading, without diagnosis of hypertension

== ENCOUNTER → 2024-07-14 12:06 | Outpatient (BNVA) | payer MEDICARE, SELFPAY | PROVIDERS: PCP Internal Medicine; Visit Provider Internal Medicine | DX: M25.461 Effusion, right knee (principal); M25.561 Pain in right knee; M25.361 Other instability, right knee; R03.0 Elevated blood-pressure reading, without diagnosis of hypertension | CPT/HCPCS: 96127; 99212 ==

== ENCOUNTER 2024-07-14 12:30 | Outpatient (REF) | payer MEDICARE, SELFPAY ==
--- NOTE | ~2024-07-14 | XR_ITS ---
EXAMINATION: XR KNEE RIGHT 2 VIEWS CLINICAL INFORMATION: Effusion, right knee M25.461. COMPARISON: None TECHNIQUE: Two views of the right knee. FINDINGS: Mild medial compartment arthritis. Small marginal patellar spurs. No acute fracture or dislocation. Small effusion. XR/XR knee RT 2V IMPRESSION: Mild arthritis. Small effusion. Study is assigned for dictation on September 14, 2024 Electronically signed by: Jesus Castelan MD 09/14/2024 10:59 AM EILEEN MENENDEZ
== END 2024-07-14 12:31 | disposition home or self-care (01) ==
LOC: HO.HMGCX 12:30
PROVIDERS: PCP Internal Medicine; Visit Provider Internal Medicine
DX: M25.461 Effusion, right knee (principal)
CPT/HCPCS: 73560

== ENCOUNTER 2024-07-27 11:55 | Outpatient (AMB) | payer MEDICARE, SELFPAY ==
[2024-07-27 11:57] VITALS: BP 142/70; PULSE 71; O2SAT 96; BMI 35.9
--- NOTE | 2024-07-27 11:57 | MHC.PC.OV ---
Vital Signs 07/27/24 11:57 Height 5 ft 6 in Weight 222 lb 4 oz BMI 35.9 BP 142/70 H Blood Pressure Location Rt brachial Position Sitting Pulse 71 Pulse Source Pulse Oximeter Pulse Oximetry (%) 96 Oxygen Delivery Method Room Air Intake Visit Reasons: 10 days f/up Allergies No Known Allergies Allergy (Verified 07/27/24 11:57) Medication List - Last Reconciled 07/27/24 by Zuri Zafar MD cholecalciferol (vitamin D3) 25 mcg PO DAILY 90 days diclofenac sodium 75 mg PO BID 10 days Tobacco use date assessed: 07/27/24 Fall risk assessment: No Falls in past year Last assessed Fall Risk: 07/27/24 Dental Screening Dental Screen Date: 07/27/24 Did you have a dental visit in the last 12 months?: Yes Did you have a dental problem in the last 6 months where you did not have access to dental care?: No Was dental information given to patient?: Patient has dentist HPI 10 days f/up HPI Details Patient came in today to be evaluated for right knee pain X-ray report is not available She was prescribed diclofenac sodium 75 mg b.i.d. Patient says that she is feeling better pain has improved But continued to have swelling I have placed a referral to orthopedic for evaluation Meanwhile she may continue with naproxen 500 b.i.d. with food Blood pressure is still elevated I am starting her on atenolol 25 mg daily She is to return in 10 days for nursing visit for blood pressure check Lab order placed to be done fasting as well Patient will return in 4 months to see me. [facility] Social History Housing: House Alcohol intake: current Alcohol intake frequency: holidays/special occasions only Alcohol type: wine Patient Tobacco Use Status: Never used Tobacco e-Cigarette/Vaping Use: Never Used Second Hand Smoke Exposure: No service: No Current occupational status: retired Cognitive needs: No Hearing needs: No Vision needs: Yes Questionnaire PHQ-9 Over the last 2 weeks, how often have you been bothered by any of the following problems? 1. Little interest or pleasure in doing things: not at all 2. Feeling down, depressed, or hopeless: not at all 3. Trouble falling or staying asleep, or sleeping too much: several days 4. Feeling tired or having little energy: several days 5. Poor appetite or overeating: not at all 6. Feeling bad about yourself - or that you are a failure or have let yourself or your family down: not at all 7. Trouble concentrating on things, such as reading the newspaper or watching television: several days 8. Moving or speaking so slowly that other people could have noticed. Or the opposite - being so fidgety or restless that you have been moving around a lot more than usual: not at all 9. Thoughts that you would be better off or of hurting yourself in some way: not at all Total score: 3 Depression Screening Interpretation: Negative Depression Screening Done: Yes 97407 - PHQ-9 Billing: Yes Source: Developed by Drs. Srinivas Camargo, Aniya Hansen, Darío Magana and colleagues, with an educational surjit from [employer]. Thrive Questionnaire Date Thrive assessed: 07/27/24 I am a: Patient What is your living situation today?: I have a steady place to live Within the past 12 months, did the food you bought not last and you didn't have the money to get more?: Never true Within the past 12 months, did you worry whether your food would run out before you got money to buy more?: Never true Do you have trouble paying for medicines?: No Do you have trouble getting transportation to medical appointments?: No Do you have trouble paying your heating and electricity bill?: No Do you have trouble taking care of your child, family member or friend?: No Do you have trouble with day-to-day activities such as bathing, preparing meals, shopping, managing finances, etc.?: I choose not to answer this question Are you currently unemployed and looking for a job?: No Are you interested in more education?: No Please select the resources that you would like help with: None Currently or been in a relationship where the following occur: I choose not to answer THRIVE Score: 0 AUDIT C Alcohol Use Questionnaire (AUDIT-C) 1. How often do you have a drink containing alcohol?: 4 or more times a week 2. How many drinks containing alcohol do you have on a typical day when you are drinking?: 1 or 2 3. How often do you have six or more drinks on one occasion?: Never Total Score: 4 Score Reviewed/Action Taken: Yes SANDRA-7 AMB Questionnaire SANDRA-7 Date SANDRA - 7 assessed: 07/14/24 Source: Developed by Drs. Srinivas Camargo, Aniya Hansen, Darío Magana and colleagues, with an educational surjit from [employer]. Review of Systems Const Denies chills and Denies fever(s) ENT Denies epistaxis and Denies nasal discharge Card Denies chest pain Resp Denies chest congestion, Denies cough and Denies hemoptysis GI Denies diarrhea and Denies nausea Skin/Breast Denies rash Neuro Reports no additional complaints Psych Reports no additional complaints Endo Reports no additional complaints Physical exam (Primary Care) Vital Signs: Last Vital Signs Pulse 71 07/27/24 11:57 BP 142/70 H 07/27/24 11:57 Pulse Ox 96 07/27/24 11:57 Oxygen Delivery Method Room Air 07/27/24 11:57 BMI result Body Mass Index 35.9 Tobacco/Smoking Status: Tobacco use Status Tobacco use date assessed 07/27/24 07/27/24 11:58 Patient Tobacco Use Status Never used Tobacco 07/27/24 11:58 e-Cigarette/Vaping Use Never Used 07/27/24 11:58 PHQ-9: PHQ-9 Score PHQ-9: Total score 3 07/27/24 11:58 Depression Screening Interpretation: Negative Thrive Assessment: Date of Thrive Assessment Date Thrive assessed 07/27/24 07/27/24 11:58 Currently or been in a relationship where the following occur: I choose not to answer Const General: cooperative, comfortable and no acute distress Orientation/consciousness: patient oriented x3 [facility] Head: Yes normocephalic Eyes General: appearance normal, both eyes and all related structures Neck Neck: Yes supple Resp Effort & Inspection: normal respiratory effort, no cough and no stridor Cardio Rhythm: regular rhythm Heart sounds: S1 normal heart sound present and S2 normal heart sound present Skin General skin exam: turgor normal Neuro General: patient oriented x3, tone normal and moves all extremities Extrem Other: Right knee with swelling, range of motion has improved Right lower extremity: no edema Left lower extremity: no edema Coding Level of Care Code Est Pt Level 3 (24418) Diagnoses Swelling of knee joint, right M25.461 Acute pain of right knee M25.561 Chronicity: acute Instability of right knee joint M25.361 Elevated blood pressure reading R03.0 Assessment & Plan Assessment & Plan (1) Swelling of knee joint, right: Code(s): M25.461 - Effusion, right knee Category: Medical (2) Pain in right knee: Code(s): M25.561 - Pain in right knee Category: Medical Qualifiers: Chronicity: acute Qualified Code(s): M25.561 - Pain in right knee (3) Instability of right knee joint: Code(s): M25.361 - Other instability, right knee Category: Medical (4) Elevated blood pressure reading: Code(s): R03.0 - Elevated blood-pressure reading, without diagnosis of hypertension Category: Medical Plan Patient came in today to be evaluated for right knee pain X-ray report is not available She was prescribed diclofenac sodium 75 mg b.i.d. Patient says that she is feeling better pain has improved But continued to have swelling I have placed a referral to orthopedic for evaluation Meanwhile she may continue with naproxen 500 b.i.d. with food Blood pressure is still elevated I am starting her on atenolol 25 mg daily She is to return in 10 days for nursing visit for blood pressure check Lab order placed to be done fasting as well Patient will return in 4 months to see me. Orders: Referrals Orthopedics Referral M25.361 - Other instability, right knee, M25.461 - Effusion, right knee, M25.561 - Pain in right knee Medications: New naproxen Take it with food 500 mg PO BID 30 days PRN 60 tabs 0RF pain atenolol 25 mg PO DAILY 90 tabs 0RF Discontinued diclofenac sodium Take it with food Discontinued Reason: Doctor's Order 75 mg PO BID 10 days 20 tabs 0RF pain
== END 2024-07-27 12:19 | disposition home or self-care (01) ==
LOC: HO.HMCC 11:56
PROVIDERS: PCP Internal Medicine; Visit Provider Internal Medicine
DX: M25.461 Effusion, right knee (principal); M25.561 Pain in right knee; M25.361 Other instability, right knee; R03.0 Elevated blood-pressure reading, without diagnosis of hypertension

== ENCOUNTER → 2024-07-27 11:55 | Outpatient (BNVA) | payer MEDICARE, SELFPAY | PROVIDERS: PCP Internal Medicine; Visit Provider Internal Medicine | DX: M25.461 Effusion, right knee (principal); M25.561 Pain in right knee; M25.361 Other instability, right knee; R03.0 Elevated blood-pressure reading, without diagnosis of hypertension | CPT/HCPCS: 96127; 99212 ==

== ENCOUNTER 2024-08-09 09:36 | Outpatient (REF) | payer MEDICARE, SELFPAY ==
[2024-08-09 13:14] LABS: MANUAL DIFF FLAG NO
[2024-08-09 13:26] LABS: Basophils Absolute Auto 0.1 X10*3/uL (0.0-0.2); Basophils Percent Auto 0.8 % (0-2); Eosinophils Absolute Auto 0.1 X10*3/uL (0.0-0.4); Eosinophils Percent Auto 1.4 % (0-4); Hematocrit 42.9 % (37.0-47.0); Hemoglobin 13.9 g/dl (12.0-16.0); Imm Gran Abs Auto 0.03 X10*3/uL (0.00-0.03); Imm Gran Pct Auto 0.3 % (0.0-0.4); Lymphocytes Absolute Auto 1.5 X10*3/uL (1.2-4.9); Lymphocytes Percent Auto 17.5 % (20-40); Mean Corpuscular HGB Conc 32.4 g/dl (31.0-35.0); Mean Corpuscular Hemoglobin 32.3 pg (27.0-33.0); Mean Corpuscular Volume 99.8 fL (80.0-98.0); Mean Platelet Volume 9.7 fL (9.4-12.3); Monocytes Absolute Auto 0.5 X10*3/uL (0.1-1.2); Neutrophils Absolute Auto 6.4 x10*3/uL (2.0-8.3); Platelet Count 194 X10*3/uL (160-400); Red Cell Distribution Width 12.4 % (11.0-16.0); White Blood Count 8.6 X10*3/uL (4.8-10.8)
[2024-08-09 13:48] LABS: Alanine Aminotransferase 20 U/L (0-31); Alkaline Phosphatase 57 U/L (39-117); Anion Gap 12 (12-20); Aspartate Amino Transferase 21 U/L (5-31); Bilirubin Total 0.6 mg/dL (0.0-1.0); Blood Urea Nitrogen 17 mg/dL (9-16); Calcium 8.8 mg/dL (8.4-10.2); Carbon Dioxide 28 mmol/L (22-29); Chloride 107 mmol/L (96-108); Estimated Glomerular Filt Rate > 60; Glucose Fasting 97 mg/dL (60-99); Potassium 4.5 mmol/L (3.3-5.1); Sodium 142 mmol/L (135-145); Total Protein 6.7 g/dL (6.5-8.0)
[2024-08-09 14:07] LABS: TSH reflex Free T4 2.61 uIU/mL (0.32-4.0)
[2024-08-13 17:24] LABS: Vitamin D 25-OH, D2 <4 ng/mL; Vitamin D 25-OH, D3 27 ng/mL; Vitamin D 25-OH, Total 27 ng/mL (30-100)
== END 2024-08-09 09:37 | disposition home or self-care (01) ==
LOC: HO.HMGCLDS 09:36
PROVIDERS: PCP Internal Medicine; Visit Provider Internal Medicine
DX: R03.0 Elevated blood-pressure reading, without diagnosis of hypertension (principal); F41.1 Generalized anxiety disorder; E55.9 Vitamin D deficiency, unspecified
CPT/HCPCS: 36415; 80053; 82306; 84443; 85025

== ENCOUNTER 2024-08-31 10:04 | Outpatient (REF) | payer MEDICARE, SELFPAY | END 2024-08-31 10:05 | disposition home or self-care (01) | LOC: HO.HOSX 10:04 | PROVIDERS: Visit Provider Orthopaedic Surgery | DX: M25.561 Pain in right knee (principal) | CPT/HCPCS: 73562 ==

== ENCOUNTER 2024-09-01 07:39 | Outpatient (REF) | payer MEDICARE, SELFPAY | END 2024-09-01 07:40 | disposition home or self-care (01) | LOC: HO.HOSX 07:39 | PROVIDERS: Visit Provider Orthopaedic Surgery | DX: M25.561 Pain in right knee (principal); S83.241A Other tear of medial meniscus, current injury, right knee, initial encounter | CPT/HCPCS: 99202 ==

== ENCOUNTER 2024-09-01 12:43 | Outpatient (AMB) | payer MEDICARE, SELFPAY ==
[2024-09-01 12:44] VITALS: BMI 35.9
--- NOTE | 2024-09-01 12:44 | A.OFFVIS_ITS ---
Vital Signs 09/01/24 12:44 Height 5 ft 6 in Weight 222 lb 4 oz BMI 35.9 Intake Visit Reasons: Right knee pain and giving way Intake Note: Gretchen is a 69 year old female who presents with complaints of progressively worsening right knee pain and giving way. She describes her pain as sharp and severe in nature. Most of the pain is along the medial aspect of her right knee. She did injure her knee approximately 1 year ago. She twisted her knee and had acute onset of pain. Since that time her symptoms have gotten worse in spite of continued non operative treatments. She has failed the last 6 weeks of conservative treatment which has consisted of physical therapy exercises, topical creams, anti-inflammatory medicines and Tylenol. She states that her right knee will ?buckle? several times per day. Allergies No Known Allergies Allergy (Verified 09/01/24 12:45) Medication List - Last Reconciled 09/01/24 by Ambrocio Bunn MD cholecalciferol (vitamin D3) 50 mcg PO DAILY naproxen 500 mg PO BID PRN 30 days [facility] Social History Housing: House Alcohol intake: current Alcohol intake frequency: holidays/special occasions only Alcohol type: wine Patient Tobacco Use Status: Never used Tobacco e-Cigarette/Vaping Use: Never Used Second Hand Smoke Exposure: No service: No Current occupational status: retired Cognitive needs: No Hearing needs: No Vision needs: Yes Physical Exam Vital Signs: BMI result Body Mass Index 35.9 Const Other: Well-nourished well-developed very friendly female awake alert and oriented x3 in no acute distress Extrem Other: Bilateral lower extremity examination shows good capillary refill, no skin lesions noted, normal sensation light touch Right knee examination shows a minimal effusion, mild crepitus with range of motion, tenderness along her medial joint line, positive Mat's test, no instability Results Reviewed Results Reviewed: X-rays of the patient's right knee show mild diffuse joint space narrowing, no acute bony abnormalities Assessment & Plan Assessment & Plan (1) Tear of medial meniscus of right knee: Code(s): S83.241A - Other tear of medial meniscus, current injury, right knee, initial encounter Category: Medical Plan Ms. Gaona presents with progressively worsening right knee pain and mechanical symptoms most likely due to a medial meniscus tear. I will send the patient for an MRI of her right knee for further evaluation. I will see her back once the MRI is completed to discuss the findings and treatment options. Feel free to call me at any time should questions regarding her orthopedic management arise. Thank you very much for asking me to see this very friendly patient. I spent 22 minutes in reviewing the patient's records and imaging studies, s eeing the patient and documenting in the medical record. Orders: Orders MR knee RT wo con 09/01/24 S83.241A - Other tear of medial meniscus, current injury, right knee, initial encounter XR knee RT 3V 09/01/24 M25.561 - Pain in right knee Coding Level of Care Code New Pt Level 3 (93243) Complex EM visit Add On G2211 Diagnoses Tear of medial meniscus of right knee S83.241A
== END 2024-09-01 13:18 | disposition home or self-care (01) ==
PROVIDERS: PCP Internal Medicine; Visit Provider Orthopaedic Surgery
DX: S83.241A Other tear of medial meniscus, current injury, right knee, initial encounter (principal)
CPT/HCPCS: 99203; G2211

== ENCOUNTER 2024-11-24 10:50 | Outpatient (AMB) | payer MEDICARE, SELFPAY ==
[2024-11-24 10:53] VITALS: BP 146/74; PULSE 74; O2SAT 97; BMI 36.5
--- NOTE | 2024-11-24 10:53 | MHC.PC.OV ---
Vital Signs 11/24/24 10:53 Height 5 ft 6 in Weight 226 lb 2 oz BMI 36.5 BP 146/74 H Blood Pressure Location Rt brachial Position Sitting Pulse 74 Pulse Source Pulse Oximeter Pulse Oximetry (%) 97 Oxygen Delivery Method Room Air Intake Visit Reasons: 4 months f/up Allergies No Known Allergies Allergy (Verified 11/24/24 10:58) Medication List - Last Reconciled 11/24/24 by Zuri Zafar MD cholecalciferol (vitamin D3) 50 mcg PO DAILY naproxen 500 mg PO BID PRN 30 days Tobacco use date assessed: 11/24/24 Fall risk assessment: 1 Fall in past year Last assessed Fall Risk: 11/24/24 Dental Screening Dental Screen Date: 11/24/24 Did you have a dental visit in the last 12 months?: No Did you have a dental problem in the last 6 months where you did not have access to dental care?: No Was dental information given to patient?: Patient declined HPI 4 months f/up HPI Details History - The patient is a 69-year-old female presenting with Essential Hypertension. - Hypertension has been a longstanding issue, and today's blood pressure reading is 146 mmHg, indicating persistent elevation. - Atenolol was initially prescribed, but led to excessively low blood pressure and slow heart rate, resulting in episodes of falls. - Discontinuation of Atenolol was due to symptomatic bradycardia despite dosage adjustments. - Labs in July, including Vitamin D, were indicative of typical results. - The patient benefits from Naproxen for management of knee pain. - Reports difficulty maintaining sleep, often waking at 3:00 AM after approximately six hours of sleep beginning at 9:00 PM. Problem List - Essential Hypertension Patient Instructions - Start with half a tablet of Amlodipine, which is 5 mg, daily. - If tolerating the half dose without issues, advance to a full tablet. - assistant golf course superintendent prescribed medications, including Amlodipine, Vitamin D, and Naproxen, at [facility]. - Monitor blood pressure at home to record readings. - Attend the scheduled appointment on November 30 for a physical exam and to reassess blood pressure. - Conduct fasting labs prior to the next visit to check blood sugar and cholesterol levels. - Consider adjusting bedtime to achieve a potentially longer sleep duration. Review of Systems - General: No fever no chills - Neurological: No headaches no dizziness - Ear nose throat: No sore throat no hearing difficulty no ear pain - Cardiovascular: No syncope, no chest pain, no palpitations - Gastrointestinal: No nausea vomiting or diarrhea - Endocrine: No polyuria polydipsia no heat intolerance - Genitourinary: No dysuria , no blood in urine Physical Exam - General: No acute distress - HEENT: No acute findings - Neck: Supple - Respiratory system: Able to talk in full sentences, no audible wheeze - cardiovascular: S1-S2 regular in rate and rhythm - Gastrointestinal: No pain - Extremities: No new findings - COOKIE BREAKER: Alert awake oriented x3 motor sensory intact - Skin: Normal turgor [facility] Social History Housing: House Alcohol intake: current Alcohol intake frequency: holidays/special occasions only Alcohol type: wine Patient Tobacco Use Status: Never used Tobacco e-Cigarette/Vaping Use: Never Used Second Hand Smoke Exposure: No service: No Current occupational status: retired Cognitive needs: No Hearing needs: No Vision needs: Yes Questionnaire PHQ-9 Over the last 2 weeks, how often have you been bothered by any of the following problems? 1. Little interest or pleasure in doing things: more than half the days 2. Feeling down, depressed, or hopeless: more than half the days 3. Trouble falling or staying asleep, or sleeping too much: nearly every day 4. Feeling tired or having little energy: more than half the days 5. Poor appetite or overeating: nearly every day 6. Feeling bad about yourself - or that you are a failure or have let yourself or your family down: several days 7. Trouble concentrating on things, such as reading the newspaper or watching television: not at all 8. Moving or speaking so slowly that other people could have noticed. Or the opposite - being so fidgety or restless that you have been moving around a lot more than usual: not at all 9. Thoughts that you would be better off or of hurting yourself in some way: not at all Total score: 13 Depression Screening Interpretation: Positive Depression Screening Follow-up: Existing condition and Declines treatment Depression Screening Done: Yes 08761 - PHQ-9 Billing: Yes Source: Developed by Drs. Srinivas Camargo, Aniya B.W. Darío Hansen and colleagues, with an educational surjit from [employer]. Thrive Questionnaire Date Thrive assessed: 11/24/24 I am a: Patient What is your living situation today?: I have a steady place to live Within the past 12 months, did the food you bought not last and you didn't have the money to get more?: Never true Within the past 12 months, did you worry whether your food would run out before you got money to buy more?: Never true Do you have trouble paying for medicines?: No Do you have trouble getting transportation to medical appointments?: No Do you have trouble paying your heating and electricity bill?: No Do you have trouble taking care of your child, family member or friend?: No Do you have trouble with day-to-day activities such as bathing, preparing meals, shopping, managing finances, etc.?: No Are you currently unemployed and looking for a job?: No Are you interested in more education?: No Please select the resources that you would like help with: None Currently or been in a relationship where the following occur: I choose not to answer THRIVE Score: 0 AUDIT C Alcohol Use Questionnaire (AUDIT-C) 1. How often do you have a drink containing alcohol?: 2-3 times a week 2. How many drinks containing alcohol do you have on a typical day when you are drinking?: 1 or 2 3. How often do you have six or more drinks on one occasion?: Never Total Score: 3 Score Reviewed/Action Taken: Yes SANDRA-7 AMB Questionnaire SANDRA-7 Date SANDRA - 7 assessed: 11/24/24 Feeling nervous, anxious, or on edge: 2 = More than half the days Not being able to stop or control worryin = Several days Worrying too much about different things: 1 = Several days Trouble relaxin = Nearly every day Being so restless that it is hard to sit still: 0 = Not at all Becoming easily annoyed or irritable: 0 = Not at all Feeling afraid as if something awful might happen: 0 = Not at all Total SANDRA-7 score (0-4 normal; 5-9 mild; 10-14 moderate; 15-21 severe): 7 Source: Developed by Drs. Srinivas Camargo, Darío Echols and colleagues, with an educational surjit from [employer]. SANDRA-7 Assessment Billing SANDRA-7 Assessment Tool: SANDRA-7 Assessment 52521 Physical exam (Primary Care) Vital Signs: Last Vital Signs Pulse 74 11/24/24 10:53 BP 146/74 H 11/24/24 10:53 Pulse Ox 97 11/24/24 10:53 Oxygen Delivery Method Room Air 11/24/24 10:53 BMI result Body Mass Index 36.5 Tobacco/Smoking Status: Tobacco use Status Tobacco use date assessed 11/24/24 11/24/24 11:00 Patient Tobacco Use Status Never used Tobacco 11/24/24 10:57 e-Cigarette/Vaping Use Never Used 11/24/24 10:57 PHQ-9: PHQ-9 Score PHQ-9: Total score 13 11/24/24 11:26 Depression Screening Interpretation: Positive Depression Screening Follow-up: Existing condition and Declines treatment Thrive Assessment: Date of Thrive Assessment Date Thrive assessed 11/24/24 11/24/24 11:00 Currently or been in a relationship where the following occur: I choose not to answer Coding Level of Care Code Est Pt Level 3 (42628) Complex EM visit Add On G2211 Diagnoses Elevated blood pressure reading R03.0 Class 1 obesity due to excess calories without serious comorbidity with body mass index (BMI) of 34.0 to 34.9 in adult E66.09; Z68.34 Body mass index: BMI 34.0-34.9 Obesity classification: adult class 1 (BMI 30 - 34.9) Serious obesity comorbidity presence: without serious comorbidity Vitamin D deficiency E55.9 Additional Codes SANDRA-7 Assessment Billing - SANDRA-7 Assessment Tool: SANDRA-7 Assessment 02900 ([id number]) PHQ-9 - 17409 - PHQ-9 Billing: Yes ([id number]) Assessment & Plan Assessment & Plan (1) Elevated blood pressure reading: Code(s): R03.0 - Elevated blood-pressure reading, without diagnosis of hypertension Category: Medical (2) Obesity due to excess calories: Code(s): E66.09 - Other obesity due to excess calories Category: Medical Qualifiers: Body mass index: BMI 34.0-34.9 Obesity classification: adult class 1 (BMI 30 - 34.9) Serious obesity comorbidity presence: without serious comorbidity Qualified Code(s): E66.09 - Other obesity due to excess calories; Z68.34 - Body mass index [BMI] 34.0-34.9, adult (3) Vitamin D deficiency: Code(s): E55.9 - Vitamin D deficiency, unspecified Category: Medical Plan History - The patient is a 69-year-old female presenting with Essential Hypertension. - Hypertension has been a longstanding issue, and today's blood pressure reading is 146 mmHg, indicating persistent elevation. - Atenolol was initially prescribed, but led to excessively low blood pressure and slow heart rate, resulting in episodes of falls. - Discontinuation of Atenolol was due to symptomatic bradycardia despite dosage adjustments. - Labs in July, including Vitamin D, were indicative of typical results. - The patient benefits from Naproxen for management of knee pain. - Reports difficulty maintaining sleep, often waking at 3:00 AM after approximately six hours of sleep beginning at 9:00 PM. Problem List - Essential Hypertension Patient Instructions - Start with half a tablet of Amlodipine, which is 5 mg, daily. - If tolerating the half dose without issues, advance to a full tablet. - assistant golf course superintendent prescribed medications, including Amlodipine, Vitamin D, and Naproxen, at [facility]. - Monitor blood pressure at home to record readings. - Attend the scheduled appointment on November 30 for a physical exam and to reassess blood pressure. - Conduct fasting labs prior to the next visit to check blood sugar and cholesterol levels. - Consider adjusting bedtime to achieve a potentially longer sleep duration. Orders: Orders Complete Blood Count Auto Diff Today E55.9 - Vitamin D deficiency, unspecified, E66.09 - Other obesity due to excess calories, R03.0 - Elevated blood-pressure reading, without diagnosis of hypertension, Z68.34 - Body mass index [BMI] 34.0-34.9, adult Comprehensive [place]. Panel Fast Today E55.9 - Vitamin D deficiency, unspecified, E66.09 - Other obesity due to excess calories, R03.0 - Elevated blood-pressure reading, without diagnosis of hypertension, Z68.34 - Body mass index [BMI] 34.0-34.9, adult TSH reflex Free T4 Today E55.9 - Vitamin D deficiency, unspecified, E66.09 - Other obesity due to excess calories, R03.0 - Elevated blood-pressure reading, without diagnosis of hypertension, Z68.34 - Body mass index [BMI] 34.0-34.9, adult Lipid Panel Today E55.9 - Vitamin D deficiency, unspecified, E66.09 - Other obesity due to excess calories, R03.0 - Elevated blood-pressure reading, without diagnosis of hypertension, Z68.34 - Body mass index [BMI] 34.0-34.9, adult Vitamin D 25-OH (D2 and D3) Today E55.9 - Vitamin D deficiency, unspecified, E66.09 - Other obesity due to excess calories, R03.0 - Elevated blood-pressure reading, without diagnosis of hypertension, Z68.34 - Body mass index [BMI] 34.0-34.9, adult Vitamin B12 Today E55.9 - Vitamin D deficiency, unspecified, E66.09 - Other obesity due to excess calories, R03.0 - Elevated blood-pressure reading, without diagnosis of hypertension, Z68.34 - Body mass index [BMI] 34.0-34.9, adult Medications: New amlodipine 5 mg PO DAILY 30 tabs 0RF cholecalciferol (vitamin D3) 50 mcg PO DAILY 90 caps 0RF Refilled naproxen Take it with food 500 mg PO BID 30 days PRN 60 tabs 0RF pain
== END 2024-11-24 11:37 | disposition home or self-care (01) ==
PROVIDERS: PCP Internal Medicine; Visit Provider Internal Medicine
DX: R03.0 Elevated blood-pressure reading, without diagnosis of hypertension (principal); E66.09 Other obesity due to excess calories; Z68.34 Body mass index [BMI] 34.0-34.9, adult; E55.9 Vitamin D deficiency, unspecified

== ENCOUNTER → 2024-11-24 10:50 | Outpatient (BNVA) | payer MEDICARE, SELFPAY | PROVIDERS: PCP Internal Medicine; Visit Provider Internal Medicine | DX: R03.0 Elevated blood-pressure reading, without diagnosis of hypertension (principal); E66.09 Other obesity due to excess calories; Z68.34 Body mass index [BMI] 34.0-34.9, adult; E55.9 Vitamin D deficiency, unspecified | CPT/HCPCS: 96127; 99212 ==